=== PATIENT | female | born 1955 | race Caucasian/White ===

== ENCOUNTER 2016-05-18 10:55 | Observation (INO) | payer OTHER, MEDICARE ==
[~2016-05-18] VITALS: Ht 157.5 cm; Wt 92.0 kg
[~2016-05-18 10:55] MED LIST: CELE40TA PO; IBUP600T26 PO
[2016-05-18 11:00] VITALS: BP 115/55; PULSE 69; RESP 16; TEMP 98; O2SAT 96
[2016-05-18] MEDS ORDERED: NITROGLYCERIN 0.4 MG SL 25 TABS/BTL SL ONE (11:15)
[2016-05-18] MEDS ORDERED: SODIUM CHLORIDE 0.9% FLUSH 5 ML FLUSH IVF PRN (11:15)
[2016-05-18 11:27] LABS: AUTOMATED NEUTROPHIL # 3.1 TH/MM3 (1.8-7.7); BASOPHIL % 0.6 % (0.0-2.0); EOSINOPHIL # 0.1 TH/MM3 (0-0.4); EOSINOPHIL % 1.2 % (0.0-4.0); HEMO FLAGS DIFF FINAL; LYMPH % 19.2 % (9.0-44.0); LYMPHOCYTE # 0.8 TH/MM3 (1.0-4.8); MEAN CELL VOLUME 91.8 FL (80.0-100.0); MEAN CORPUSCULAR HEMOGLOBIN 31.4 PG (27.0-34.0); MEAN CORPUSCULAR HGB CONC 34.2 % (32.0-36.0); MONO % 8.8 % (0.0-8.0); NEUT % 70.2 % (16.0-70.0); PLATELET COUNT 152 TH/MM3 (150-450); RED BLOOD COUNT 4.68 MIL/MM3 (4.00-5.30); RED CELL DISTRIBUTION WIDTH 13.2 % (11.6-17.2); WHITE BLOOD COUNT 4.4 TH/MM3 (4.0-11.0)
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
[2016-05-18 11:51] LABS: ANION GAP 6 MEQ/L (5-15); BICARBONATE 28.3 MEQ/L (21.0-32.0); BLOOD UREA NITROGEN 16 MG/DL (7-18); CHLORIDE 109 MEQ/L (98-107); GLOMERULAR FILTRATION RATE 68 ML/MIN (>89); MAGNESIUM 2.1 MG/DL (1.5-2.5); SODIUM (NA) 143 MEQ/L (136-145)
[2016-05-18 11:52] LABS: CREATINE KINASE 94 U/L (26-192)
[2016-05-18 12:23] VITALS: O2SAT 97
[2016-05-18 12:27] VITALS: BP 101/61; PULSE 62; RESP 18; O2SAT 98
[2016-05-18 12:41] LABS: APTT (PATIENT) 22.5 SEC (24.3-30.1); PROTHROMBIN TIME - PATIENT 10.6 SEC (9.8-11.6)
[2016-05-18] MEDS ORDERED: NITROGLYCERIN 0.4 MG SL 25 TABS/BTL SL PRN (12:45)
[2016-05-18] MEDS ORDERED: ACETAMINOPHEN 500 MG CPLT PO PRN (12:45)
[2016-05-18] MEDS ORDERED: ONDANSETRON HCL 4 MG/2 ML VIAL IV PRN (12:45)
[2016-05-18 13:09] VITALS: BP 109/61; PULSE 63; RESP 18; O2SAT 98
[2016-05-18 13:48] VITALS: BP 94/55; PULSE 58; RESP 18; O2SAT 97
[2016-05-18 15:34] LABS: CREATINE KINASE 67 U/L (26-192)
--- NOTE | 2016-05-18 16:14 | HHI.DCPOC ---
Discharge Care Plan Diagnosis: (1) Atypical chest pain (2) Anxiety Goals to Promote Your Health * To prevent worsening of your condition and complications * To maintain your health at the optimal level Directions to Meet Your Goals Take your medications as prescribed Follow your dietary instruction Follow activity as directed Keep your appointments as scheduled Take your immunizations and boosters as scheduled If your symptoms worsen call your PCP, if no PCP go to Urgent Care Center or Emergency Room Smoking is Dangerous to Your Health. Avoid second hand smoke Call the 24-hour hour crisis hotline for domestic abuse at Jena Mehta May 18, 2016 16:14
[2016-05-18 17:00] VITALS: BP 116/60; PULSE 63; RESP 18; O2SAT 97
[2016-05-18] MEDS ORDERED: SODIUM CHLORIDE 0.9% FLUSH 5 ML FLUSH IVF SCH (21:00)
--- NOTE | 2016-05-19 11:39 | EKG ---
Date Performed: 05/18/2016 Time Performed: 11:22:38 PTAGE: 60 years EKG: Sinus rhythm NORMAL ECG NO PREVIOUS TRACING DOCTOR: Trevor Jo Interpretating Date/Time 05/19/2016 11:38:44
--- NOTE | 2016-05-19 11:41 | EKG ---
Date Performed: 05/18/2016 Time Performed: 14:19:04 PTAGE: 60 years EKG: SINUS BRADYCARDIA BORDERLINE ECG PREVIOUS TRACING : 05/18/2016 11.22 DOCTOR: Trevor Jo Interpretating Date/Time 05/19/2016 11:40:41
--- NOTE | 2016-05-19 11:51 | TR ---
Date Performed: 05/18/2016 Time Performed: 15:42:39 DOCTOR: Trevor Jo DRUG LIST: CLINICAL HISTORY: REASON FOR TEST: Chest pain REASON FOR ENDING: OBSERVATION: CONCLUSION: Benny protocol completed. Stopped sec to reaching target heart rate and leg fatigue. Maximum LK=669 Max HR Achieved=88.0% Total Exercise Time=5:17 Maximum MY=971/70. No reprod chest dis comfort. No ectopy. No st segment changes to sugg ischemia. Fair exercise tolerance. Normal bp respon se. Recovery quick and unremarkable. COMMENTS: CONCLUSION: Normal exercise tolerance. No evidence of ischemia.
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
== END 2016-05-18 17:30 | disposition home or self-care (01) ==
LOC: NEPE 10:55 → NEDA 12:01
PROVIDERS: ADMIT Internal Medicine Cardiovascular Disease; ATTEND Internal Medicine Cardiovascular Disease
DX: R07.9 Chest pain, unspecified (principal); S80.211A Abrasion, right knee, initial encounter; R94.31 Abnormal electrocardiogram [ECG] [EKG]; E78.00 Pure hypercholesterolemia, unspecified; F41.9 Anxiety disorder, unspecified; F17.210 Nicotine dependence, cigarettes, uncomplicated; V89.2XXA Person injured in unspecified motor-vehicle accident, traffic, initial encounter
CPT/HCPCS: 71010; 80048; 82550; 83735; 84484; 85025; 85610; 85730; 93005; 93017; 99285; G0378

== ENCOUNTER 2017-02-03 08:33 | Emergency (ER) | payer MEDICARE ==
[~2017-02-03] VITALS: Ht 160 cm; Wt 100.0 kg
[~2017-02-03 08:33] MED LIST changes: -IBUP600T26 PO
[2017-02-03 08:49] VITALS: BP 119/54; PULSE 79; RESP 16; TEMP 98.4; O2SAT 95
[2017-02-03] MEDS ORDERED: KETOROLAC TROMETHAMINE 60 MG/2 ML (IM) VIAL IM ONE (09:30)
[2017-02-03] MEDS ORDERED: PRED10PA2 PO (10:18)
[2017-02-03] MEDS ORDERED: ULTR50TA5 PO (10:18)
--- NOTE | 2017-02-03 10:18 | PD ---
HPI . Left leg pain Chief Complaint: Pain: Acute or Chronic Time Seen by Provider: 09:27 Travel History International Travel<30 days: No Contact w/Intl Traveler<30days: No Traveled to known affect area: No History of Present Illness HPI This patient presents with a chief complaint of left leg pain. The pain is chronic in nature and has been getting progressively worse for the past several weeks. Pain is exacerbated with walking and better with sitting. Symptoms have been unrelieved by a presumed cortisone shot which she received a few weeks ago. 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 She also reports a history of MS. PFSH Past Medical History Depression: Yes Cancer: No Cardiovascular Problems: No Diminished Hearing: No Endocrine: No Genitourinary: No Immune Disorder: No Musculoskeletal: Yes (MS) Neurologic: No Reproductive: No Respiratory: No Menopausal: Yes Past Surgical History Endocrine Surgery: Yes (FATTY TUMOR REMOVED RIGHT ARM) Gynecologic Surgery: Yes (TUBAL) Oral Surgery: Yes (TONSILECTOMY) Pacemaker: No Tonsillectomy: Yes Other Surgery: Yes Social History Alcohol Use: No Tobacco Use: Yes (4 CIGARETTES A DAY) Substance Use: No Allergies-Medications (Allergen,Severity, Reaction): Coded Allergies: Sulfa (Sulfonamide Antibiotics) (Unverified Allergy, Severe, RASH, ) Reported Meds & Prescriptions Reported Meds & Active Scripts Active Review of Systems Except as stated in HPI: all other systems reviewed are Neg General / Constitutional: No: Fever, Chills Genitourinary: No: Incontinence Neurologic: Positive: Paresthesia, No: Weakness, Incontinence Physical Exam Narrative GENERAL: Awake and alert and in no acute distress. SKIN: Warm and dry. No rash or lesions. Good color. Normal capillary refill. HEAD: Normocephalic/atraumatic. EYES: Pupils are equal. Extraocular movements are intact. NECK: Supple with full range of motion. RESPIRATORY: Nonlabored respirations. MUSCULOSKELETAL: No tenderness to percussion along the lumbar spine. No SI joint tenderness. Straight leg raise on the right has no effect. Straight leg raise on the left reproduces her symptoms. NEUROLOGICAL: Normal movement and sensation in her left lower extremity. PSYCHIATRIC: Appropriate mood and affect. Data Data Last Documented VS Vital Signs Date Time Temp Pulse Resp B/P (MAP) Pulse Ox O2 Delivery O2 Flow Rate FiO2 02/03/17 08:49 98.4 79 16 119/54 (75) 95 Orders Orders Ketorolac Inj (Toradol Inj) (02/03/17 09:30) MDM Medical Decision Making Medical Screen Exam Complete: Yes Emergency Medical Condition: Yes Differential Diagnosis Differential diagnosis of leg pain includes but is not limited to lumbar radiculopathy, arthritis, myalgias, DVT. Narrative Course This patient presents with left lower extremity pain which sounds like sciatica. She has no physical exam findings concerning for DVT such as swelling or discoloration of her leg. She has a known HNP. She will be treated with steroids. Diagnosis Primary Impression: Sciatica Qualified Codes: M54.32 - Sciatica, left side Patient Instructions: General Instructions, Sciatica (DC) Med/Other Pt SpecificInfo: Prescription(s) given Scripts Tramadol (Ultram) 50 Mg Tab 50 MG PO Q4H Y for PAIN, #12 TAB 0 Refills Prov: Kristan Vásquez MD 02/03/17 Prednisone (48) 10 mg tab Dose Pack (Prednisone (48) 10 mg tab Dose Pack) 10 Mg Dspk 10 MG PO DIRECTED for Inflammation, #1 DSPK 0 Refills Prov: Kristan Vásquez MD 02/03/17 Disposition: 01 DISCHARGE HOME Condition: Stable Kristan Vásquez MD Feb 03, 2017 10:18
== END 2017-02-03 10:28 | disposition home or self-care (01) ==
LOC: NEPD 08:33
DX: M54.32 Sciatica, left side (principal); G35 Multiple sclerosis; F17.210 Nicotine dependence, cigarettes, uncomplicated
CPT/HCPCS: 96372; 99284; J1885